=== PATIENT | male | born 1945 ===

== ENCOUNTER → 2017-03-19 | Outpatient (CLI) | payer MEDICARE ==
--- NOTE | 2017-03-19 16:05 | RAD ---
PA and lateral views of the chest were obtained. History: 2 months of dyspnea Comparison: none The heart and pulmonary vasculature appear within normal limits. The lungs are clear. The pleural margins are clear. Impression: No acute chest process is seen.
== END | disposition home or self-care (01) ==
LOC: RAD 11:58
PROVIDERS: ATTEND Internal Medicine Critical Care Medicine
DX: R06.00 Dyspnea, unspecified (principal)
CPT/HCPCS: 71020

== ENCOUNTER 2019-01-21 20:49 | Emergency (ER) | payer MEDICARE, OTHER ==
[~2019-01-21] VITALS: Ht 165.1 cm; Wt 67.1 kg
[2019-01-21] MEDS ORDERED: MORPHINE SULFATE 2 MG/ML VIAL. IV/SQ PRN (21:00)
[2019-01-21 21:33] LABS: BASO # 0.1 x10^3/uL (0.0-0.2); BASO % 0 % (0-3); EOS # 0.2 x10^3/uL (0.0-0.7); EOS % 1 % (0-3); HEMATOCRIT 44.8 % (39.0-53.0); HEMOGLOBIN 15.4 g/dL (13.0-17.5); LYMPH # 1.4 x10^3/uL (1.0-4.8); LYMPH % 7 % (24-48); MEAN CORPUSCULAR HEMOGLOBIN 30 pg (25-35); MEAN CORPUSCULAR HGB CONC 34 g/dL (31-37); MEAN CORPUSCULAR VOLUME 86 fL (79-100); MONO # 0.7 x10^3/uL (0.0-1.1); MONO % 4 % (0-9); NEUT # 16.4 x10^3/uL (1.8-7.7); NEUT % 87 % (31-73); PLATELET COUNT 282 x10^3/uL (140-400); RED BLOOD COUNT 5.19 x10^6/uL (4.30-5.70); WHITE BLOOD COUNT 18.8 x10^3/uL (4.0-11.0)
[2019-01-21 21:41] LABS: CALCIUM 9.6 mg/dL (8.5-10.1); CREATININE 1.1 mg/dL (0.7-1.3); GFR 65.4; POTASSIUM 4.1 mmol/L (3.5-5.1)
[2019-01-21 21:48] LABS: ALBUMIN 4.2 g/dL (3.4-5.0); ALBUMIN/GLOBULIN RATIO 1.1 (1.0-1.7); TOTAL BILIRUBIN 0.4 mg/dL (0.2-1.0); TOTAL PROTEIN 8.1 g/dL (6.4-8.2)
[2019-01-21] MEDS ORDERED: fentaNYL PF VIAL 100 MCG/2 ML VIAL IVP ONE (22:00)
[2019-01-21] MEDS ORDERED: ONDANSETRON PF 4 MG/2 ML VIAL. IV ONE (22:00)
[2019-01-21] MEDS ORDERED: IV NORMAL SALINE 1000ML BAG 1,000 ML IV SCH (22:00)
[2019-01-21 22:02] LABS: % ATYL 2 % (0-0); % BANDS 20 % (0-9); % LYMPHS 7 % (24-48); % MONOS 5 % (0-10); % SEGS 66 % (35-66); PLT ESTIMATE ADEQUATE (ADEQUATE)
[2019-01-21] MEDS ORDERED: diphenhydrAMINE 50 MG/ML VIAL IVP ONE (22:30)
[2019-01-21] MEDS ORDERED: CONTRAST GIVEN. MC PRN (23:00)
[2019-01-21] MEDS ORDERED: IOHEXOL 300 MG/ML 100ML VIAL. IV ONE (23:00)
[2019-01-21 23:31] VITALS: BP 124/70
--- NOTE | 2019-01-21 23:32 | RAD ---
Exam: CT abdomen and pelvis with contrast INDICATION: Upper abdominal pain TECHNIQUE: Sequential axial images through the abdomen and pelvis obtained following the administration of 75 mL of Omni 300 IV contrast. Sagittal and coronal reformatted images were reconstructed from the axial data and reviewed. Comparisons: None FINDINGS: Heart size is normal. No pericardial effusion. Visualized lung bases are clear. No pleural effusion. Liver, spleen, pancreas, gallbladder and adrenals are unremarkable. Kidneys demonstrate symmetric enhancement. No perinephric inflammation or hydronephrosis. Exophytic simple cyst at the lower pole of the left kidney. There is a nonobstructing 3 mm calculus the upper pole of the right kidney. No ureteral calculi. Bladder is distended and appears thin-walled. Prostate is not enlarged. There are several distended loops of small bowel noted within the midabdomen with fecalization of small bowel contents with gradual transition to decompressed bowel in the right lower quadrant. Remainder of the large and small bowel are unremarkable. No obstruction. No free intra-abdominal air or fluid. Appendix is normal. Abdominal aorta has a normal course and caliber. Abdominal vasculature is patent. No enlarged intra-abdominal lymph nodes are identified. No suspicious osseous lesions or acute fractures. IMPRESSION: Several distended loops of small bowel noted within the midabdomen with fecalization of small bowel contents with gradual transition to decompressed bowel in the right lower quadrant. Findings may be on the basis of enteritis, with delayed transit. Developing obstruction is also possible. Close clinical follow-up is recommended. Exposure: One or more of the following in the visualized dose reduction techniques were utilized for this examination: 1. Automated exposure control 2. Adjustment of the MA and/or KV according to patient size 3. Use of iterative of reconstructive technique Electronically signed by: Elen Muller MD (01/21/2019 11:29 PM) [facility]
--- NOTE | 2019-01-21 23:41 | PHYS DOC ---
Past Medical History Past Medical History: Hypertension Past Surgical History: No Surgical History Alcohol Use: None Drug Use: None Adult General Chief Complaint Chief Complaint: ABDOMINAL PAIN HPI HPI Patient is a 73-year-old male who presents with complaint of epigastric abdominal pain that started yesterday. Patient states the pain has been waxing and waning since onset. Currently he rates his pain to be an 8 out of 10. He denies any nausea, vomiting or diarrhea. He also denies any fever. Patient describes pain as like a deep ache. He denies any radiation of the pain. Patient states that nothing improves the pain.[] Review of Systems Review of Systems Constitutional: Denies fever or chills [] Respiratory: Denies cough or shortness of breath [] Cardiovascular: No additional information not addressed in HPI [] GI: Complains of abdominal pain without vomiting or diarrhea [] Musculoskeletal: Denies back pain or joint pain [] Integument: Denies rash or skin lesions [] Neurologic: Denies headache, focal weakness or sensory changes [] All other systems were reviewed and found to be within normal limits, except as documented in this note. Current Medications Current Medications Current Medications Medications (Trade) Dose Ordered Sig/Tawana Start Time Stop Time Status Last Admin Dose Admin Diphenhydramine HCl (Benadryl) 50 mg 1X ONCE 01/21/19 22:30 01/21/19 22:31 DC 01/21/19 22:24 50 MG Fentanyl Citrate (Fentanyl 2ml Vial) 50 mcg 1X ONCE 01/21/19 22:00 01/21/19 22:01 DC 01/21/19 22:07 50 MCG Info (CONTRAST GIVEN -- Rx MONITORING) 1 each PRN DAILY PRN 01/21/19 23:00 01/23/19 22:59 Iohexol (Omnipaque 300 Mg/ml) 75 ml 1X ONCE 01/21/19 23:00 01/21/19 23:01 DC 01/21/19 23:09 75 ML Morphine Sulfate (Morphine Sulfate) 2 mg PRN Q15MIN PRN 01/21/19 21:00 01/21/19 22:15 DC 01/21/19 21:30 2 MG Ondansetron HCl (Zofran) 4 mg 1X ONCE 01/21/19 22:00 01/21/19 22:01 DC 01/21/19 21:29 4 MG Sodium Chloride 1,000 ml @ 1,000 mls/hr Q1H 01/21/19 22:00 01/21/19 22:59 DC 01/21/19 21:30 1,000 MLS/HR Allergies Allergies Allergies Coded Allergies Type Severity Reaction Last Updated Verified morphine Allergy Intermediate 01/21/19 Yes Physical Exam Physical Exam Constitutional: Well developed, well nourished, no acute distress, non-toxic appearance. [] HENT: Normocephalic, atraumatic, bilateral external ears normal, oropharynx moist, no oral exudates, nose normal. [] Eyes: PERRLA, EOMI, conjunctiva normal, no discharge. [] Neck: Normal range of motion, no tenderness, supple. [] Cardiovascular: Regular rate and rhythm[] Lungs & Thorax: Bilateral breath sounds clear to auscultation [] Abdomen: Bowel sounds normal, soft, with epigastric tenderness. [] Skin: Warm, dry, no erythema, no rash. [] Extremities: No tenderness, no cyanosis, no clubbing, ROM intact. [] Neurologic: Alert and oriented X 3, no focal deficits noted. [] Current Patient Data Vital Signs Vital Signs Date Time Temp Pulse Resp B/P (MAP) Pulse Ox O2 Delivery O2 Flow Rate FiO2 01/21/19 22:07 Room Air 01/21/19 21:08 98.0 86 12 156/75 (102) 97 98.0 Lab Values Laboratory Tests Test 01/21/19 21:25 White Blood Count 18.8 x10^3/uL (4.0-11.0) H Red Blood Count 5.19 x10^6/uL (4.30-5.70) Hemoglobin 15.4 g/dL (13.0-17.5) Hematocrit 44.8 % (39.0-53.0) Mean Corpuscular Volume 86 fL (79-100) Mean Corpuscular Hemoglobin 30 pg (25-35) Mean Corpuscular Hemoglobin Concent 34 g/dL (31-37) Red Cell Distribution Width 13.0 % (11.5-14.5) Platelet Count 282 x10^3/uL (140-400) Neutrophils (%) (Auto) 87 % (31-73) H Lymphocytes (%) (Auto) 7 % (24-48) L Monocytes (%) (Auto) 4 % (0-9) Eosinophils (%) (Auto) 1 % (0-3) Basophils (%) (Auto) 0 % (0-3) Neutrophils # (Auto) 16.4 x10^3/uL (1.8-7.7) H Lymphocytes # (Auto) 1.4 x10^3/uL (1.0-4.8) Monocytes # (Auto) 0.7 x10^3/uL (0.0-1.1) Eosinophils # (Auto) 0.2 x10^3/uL (0.0-0.7) Basophils # (Auto) 0.1 x10^3/uL (0.0-0.2) Segmented Neutrophils % 66 % (35-66) Band Neutrophils % 20 % (0-9) H Lymphocytes % 7 % (24-48) L Atypical Lymphocytes % (Manual) 2 % (0-0) H Monocytes % 5 % (0-10) Platelet Estimate Adequate (ADEQUATE) Large Platelets Few Sodium Level 142 mmol/L (136-145) Potassium Level 4.1 mmol/L (3.5-5.1) Chloride Level 102 mmol/L (98-107) Carbon Dioxide Level 29 mmol/L (21-32) Anion Gap 11 (6-14) Blood Urea Nitrogen 17 mg/dL (8-26) Creatinine 1.1 mg/dL (0.7-1.3) Estimated GFR (Cockcroft-Gault) 65.4 BUN/Creatinine Ratio 15 (6-20) Glucose Level 152 mg/dL (70-99) H Calcium Level 9.6 mg/dL (8.5-10.1) Total Bilirubin 0.4 mg/dL (0.2-1.0) Aspartate Amino Transferase (AST) 16 U/L (15-37) Alanine Aminotransferase (ALT) 18 U/L (16-63) Alkaline Phosphatase 85 U/L (46-116) Troponin I Quantitative < 0.017 ng/mL (0.000-0.055) Total Protein 8.1 g/dL (6.4-8.2) Albumin 4.2 g/dL (3.4-5.0) Albumin/Globulin Ratio 1.1 (1.0-1.7) Lipase 180 U/L (73-393) Laboratory Tests 01/21/19 21:25 Laboratory Tests 01/21/19 21:25 EKG EKG [] Radiology/Procedures Radiology/Procedures [] Impressions: PROCEDURE: CT ABD PELV W/ IV CONTRST ONLY Exam: CT abdomen and pelvis with contrast INDICATION: Upper abdominal pain TECHNIQUE: Sequential axial images through the abdomen and pelvis obtained following the administration of 75 mL of Omni 300 IV contrast. Sagittal and coronal reformatted images were reconstructed from the axial data and reviewed. Comparisons: None FINDINGS: Heart size is normal. No pericardial effusion. Visualized lung bases are clear. No pleural effusion. Liver, spleen, pancreas, gallbladder and adrenals are unremarkable. Kidneys demonstrate symmetric enhancement. No perinephric inflammation or hydronephrosis. Exophytic simple cyst at the lower pole of the left kidney. There is a nonobstructing 3 mm calculus the upper pole of the right kidney. No ureteral calculi. Bladder is distended and appears thin-walled. Prostate is not enlarged. There are several distended loops of small bowel noted within the midabdomen with fecalization of small bowel contents with gradual transition to decompressed bowel in the right lower quadrant. Remainder of the large and small bowel are unremarkable. No obstruction. No free intra-abdominal air or fluid. Appendix is normal. Abdominal aorta has a normal course and caliber. Abdominal vasculature is patent. No enlarged intra-abdominal lymph nodes are identified. No suspicious osseous lesions or acute fractures. IMPRESSION: Several distended loops of small bowel noted within the midabdomen with fecalization of small bowel contents with gradual transition to decompressed bowel in the right lower quadrant. Findings may be on the basis of enteritis, with delayed transit. Developing obstruction is also possible. Close clinical follow-up is recommended. Exposure: One or more of the following in the visualized dose reduction techniques were utilized for this examination: 1. Automated exposure control 2. Adjustment of the MA and/or KV according to patient size 3. Use of iterative of reconstructive technique Electronically signed by: Elen Muller MD (01/21/2019 11:29 PM) [facility] Course & Med Decision Making Course & Med Decision Making Pertinent Labs and Imaging studies reviewed. (See chart for details) Patient moved to room upon arrival was evaluated by your medical staff after which an IV was established and blood work was drawn. CT imaging was additionally performed. CT demonstrates findings of some dilated bowel loops with transition to decompressed bowel which radiologist suggested could be due to enteritis versus developing bowel obstruction. These findings were reviewed with patient and family at length and patient does not feel that he has bowel obstruction as he has had 2 normal bowel movements today. 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 I reviewed the findings with the curbing stonecutter and patient will follow-up with him early next week. I further discussed options of admission for further evaluation here in the [facility] but patient indicates that he would prefer discharge home as he is pain- free at this time. Given patient's extensive resources to include follow-up physician including gastroenterology, I do feel the patient would be safe for discharge home at this time. Dragon Disclaimer Dragon Disclaimer This electronic medical record was generated, in whole or in part, using a voice recognition dictation system. Departure Departure Impression: Primary Impression: Upper abdominal pain Disposition: HOME, SELF-CARE Condition: STABLE Referrals: PETE NANCE MD (PCP) Patient Instructions: Abdominal Pain Scripts Ondansetron Hcl (ZOFRAN) 4 Mg Tablet 4 MG PO PRN TID PRN for NAUSEA, #15 TAB nausea/vomiting Prov: CHAMP HERNANDEZ Jr. DO 01/22/19 Oxycodone/Apap 5-325 (PERCOCET 5-325 MG TABLET ) 1 Each Tablet 1-2 EACH PO Q6HRS PRN for PAIN, #20 TAB pain Prov: CHAMP HERNANDEZ Jr. DO 01/22/19 CHAMP HERNANDEZ Jr. DO Jan 21, 2019 23:41
[2019-01-22] MEDS ORDERED: OXYC1TAB15 PO (00:08)
[2019-01-22] MEDS ORDERED: ONDA4TAB7 PO (00:08)
--- NOTE | 2019-01-23 11:40 | EKG ---
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
== END 2019-01-22 00:29 | disposition home or self-care (01) ==
LOC: ER 20:49
DX: R10.13 Epigastric pain (principal); I10 Essential (primary) hypertension; Z88.5 Allergy status to narcotic agent
CPT/HCPCS: 36415; 74177; 80053; 83690; 84484; 85007; 85025; 93005; 96374; 96375; 99285; J1200; J2270; J2405; J3010; J7030; Q9967